=== PATIENT | female | born 1965 | race Hispanic/Latino ===

== ENCOUNTER 2020-10-24 16:17 | Emergency (ER) | payer SELFPAY ==
[2020-10-24 16:30] VITALS: BP 104/75
--- NOTE | 2020-10-24 18:11 | Event Note ---
ED Screening Note ED Screening Note: Patient is a 54-year-old female presents emergency room for medical clearance for sober living. She states that she checked herself in today for alcoholism but states that she needs a medical clearance before she is allowed to go there. She states that she last drink earlier this morning. She states that she had about a fourth of a pint of vodka. She denies any tremors, nausea, vomiting, diarrhea, headache, vision changes, chest pain, shortness of breath, fever. Past medical history of CAD with a stent and hypertension. She is also a current every day smoker. She denies drug use. No SI or HI. Allergy to penicillin. This initial assessment/diagnostic orders/clinical plan/treatment(s) is/are subject to change based on patients health status, clinical progression and re- assessment by fellow clinical providers in the ED. Further treatment and workup at subsequent clinical providers discretion. Patient/guardian urged not to elope from the ED as their condition may be serious if not clinically assessed and managed. Initial orders include: Medical clearance order set
[2020-10-24 18:54] LABS: Albumin 4.4 g/dL (3.9-5); Basophils # (Auto) 0.1 K/mm3 (0.0-0.1); Calcium 9.5 mg/dL (8.4-10.2); Eosinophils # (Auto) 0.2 K/mm3 (0.0-0.4); Eosinophils % (Auto) 2.7 % (0.0-4.3); Hematocrit 45.5 % (30.3-42.9); Hemoglobin 15.2 gm/dl (10.1-14.3); Lymphocytes # (Auto) 2.3 K/mm3 (1.2-5.4); Lymphocytes % (Auto) 29.2 % (13.4-35.0); Mean Corpuscular HGB Conc 33 % (30-34); Mean Corpuscular Volume 93 fl (79-97); Monocytes # (Auto) 0.4 K/mm3 (0.0-0.8); Monocytes % (Auto) 5.4 % (0.0-7.3); Platelet Count 352 K/mm3 (140-440); Red Blood Count 4.87 M/mm3 (3.65-5.03); Red Cell Distribution Width 16.9 % (13.2-15.2)
[2020-10-24 19:49] LABS: Bilirubin,Urine NEG (Negative); Blood,Urine NEG (Negative); Color,Urine Yellow (Yellow); Mucus,Urine FEW /HPF; Protein,Urine <15 mg/dL mg/dL (Negative); Urobilinogen,Urine < 2.0 mg/dL (<2.0)
[2020-10-24 19:50] LABS: Amphetamine Screen,Urine Negative; Benzodiazepines Screen,Urine Negative; Cannabinoid Screen,Urine Negative; Cocaine Screen,Urine Negative; Methadone Screen,Urine Negative; Opiate Screen,Urine Negative
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
== END 2020-10-24 22:30 | disposition home or self-care (01) ==
LOC: ED 16:17
DX: F10.10 Alcohol abuse, uncomplicated (principal); I11.0 Hypertensive heart disease with heart failure; I50.9 Heart failure, unspecified; F17.200 Nicotine dependence, unspecified, uncomplicated; Z13.9 Encounter for screening, unspecified
CPT/HCPCS: 36415; 80053; 80307; 80320; 81001; 82550; 83690; 83735; 85025; G0480